=== PATIENT | male | born 1955 | race Caucasian/White ===

== ENCOUNTER 2017-02-01 16:25 | Inpatient (IN) | payer OTHER ==
[~2017-02-01] VITALS: Ht 170.2 cm; Wt 92.6 kg
[2017-02-01 18:54] LABS: URINE BLOOD (Dip) POC Negative (NEGATIVE)
[2017-02-01] MEDS ORDERED: morphine 2 MG INJ IV STA (18:59)
[2017-02-01] MEDS ORDERED: SOD CHLORIDE 0.9% 1,000 ML IV STA (18:59)
[2017-02-01] MEDS ORDERED: ONDANSETRON 4 MG INJ IV STA ×2 (18:59→22:15)
--- NOTE | 2017-02-01 19:11 | ERD ---
ER Documentation Chief Complaint Chief Complaint LOWER ABDOMINAL PAIN X 1 WEEK; DENIES N/V HPI This is a very pleasant 61-year-old [place]-speaking male with a known history of hypertension. He presents to the emergency department stating he has been experiencing intermittent abdominal pain for the past 7 days. The patient indicates that the pain is below his umbilicus and does radiate to the left lower quadrant. The pain is exacerbated by movement. He denies any fever shaking or chills. He denies any diarrhea or constipation. He denies any gross hematuria and also no frequency urgency or dysuria. He denies any nocturia or weight loss. He denies any shortness of breath at rest or exertion. He has no chest pain or pressure that radiates the neck arm back or jaw. He states never had any similar symptoms in the past. He has no changes in his bladder or bowel frequency. He has taken Advil which improved his pain. He states the pain when he is not taking the Advil is 8 out of 10 in intensity. ROS All systems reviewed and are negative except as per history of present illness. Allergies Allergies: Coded Allergies: No Known Allergy (Unverified , 02/01/17) Physical Exam Vitals Vital Signs Date Time Temp Pulse Resp B/P Pulse Ox O2 Delivery O2 Flow Rate FiO2 02/01/17 16:28 98.4 71 19 156/93 94 Physical Exam Constitutional:Well-developed. Well-nourished. HEENT:Normocephalic. Atraumatic.Pupils were equal round reactive to light. Moist mucous membranes.No tonsillar exudates. Neck: No nuchal rigidity. No lymphadenopathy. No posterior cervical spine tenderness or step-offs. Respiratory: Not using accessory muscles of respiration.Lungs were clear to auscultation bilaterally. No rhonchi. No rales. No wheezing. Cardiovascular: Regular rate regular rhythm.No murmurs. No rubs were appreciated.S1, S2 normal. Distal pulses are palpable 2+ bilaterally. GI: Abdomen was soft. Tenderness in the left lower quadrant and mild tenderness below the umbilicus with no palpable bladder. Non Distended. No pulsatile abdominal masses or bruits. No rebound. No guarding. Bowel sounds were present and normal. Muscle skeletal: Full range of motion of both the upper and lower extremities bilaterally.Normal muscle tone.No assymetrical calf tenderness or swelling. Skin: No petechia, no purpura. No lesions on the palms or the soles of the feet. No maculopapular rash. NEURO: Patient was alert, awake, orientated x3.No facial droop. Gait observed and normal with no ataxia.Speech had regular rate and rhythm. No focal neurological deficits. Result Diagram: 02/01/17190102/01/171901 Results 24 hrs Laboratory Tests Test 02/01/17 18:52 02/01/17 19:02 Bedside Urine pH (LAB) 7.0 Bedside Urine Protein (LAB) Negative Bedside Urine Glucose (UA) Negative Bedside Urine Ketones (LAB) Negative Bedside Urine Blood Negative Bedside Urine Nitrite (LAB) Negative Bedside Urine Leukocyte Esterase (L Negative White Blood Count 11.310^3/ul Red Blood Count 4.9210^6/ul Hemoglobin 14.4g/dl Hematocrit 42.8% Mean Corpuscular Volume 87.0fl Mean Corpuscular Hemoglobin 29.3pg Mean Corpuscular Hemoglobin Concent 33.6g/dl Red Cell Distribution Width 12.7% Platelet Count 62476^3/UL Mean Platelet Volume 11.1fl Neutrophils % 75.2% Lymphocytes % 16.4% Monocytes % 6.3% Eosinophils % 1.3% Basophils % 0.4% Nucleated Red Blood Cells % 0.0/100WBC Neutrophils # 8.510^3/ul Lymphocytes # 1.910^3/ul Monocytes # 0.710^3/ul Eosinophils # 0.210^3/ul Basophils # 0.010^3/ul Nucleated Red Blood Cells # 0.010^3/ul Prothrombin Time 11.8Sec Prothrombin Time Ratio 0.9 INR International Normalized Ratio 0.86 Activated Partial Thromboplast Time 31.3Sec Urine Color STRAW Urine Clarity CLEAR Urine pH 7.0 Urine Specific [place] 1.005 Urine Ketones NEGATIVEmg/dL Urine Nitrite NEGATIVEmg/dL Urine Bilirubin NEGATIVEmg/dL Urine Urobilinogen NEGATIVEmg/dL Urine Leukocyte Esterase NEGATIVELeu/ul Urine Hemoglobin NEGATIVEmg/dL Urine Glucose NEGATIVEmg/dL Urine Total Protein NEGATIVEmg/dl Sodium Level 142mmol/L Potassium Level 4.3mmol/L Chloride Level 101mmol/L Carbon Dioxide Level 31mmol/L Anion Gap 14 Blood Urea Nitrogen 19mg/dl Creatinine 1.09mg/dl Glucose Level 106mg/dl Calcium Level 9.7mg/dl Total Bilirubin 0.7mg/dl Direct Bilirubin 0.00mg/dl Indirect Bilirubin 0.7mg/dl Aspartate Amino Transf (AST/SGOT) 21IU/L Alanine Aminotransferase (ALT/SGPT) 44IU/L Alkaline Phosphatase 81IU/L Troponin I < 0.012ng/ml Total Protein 7.9g/dl Albumin 4.1g/dl Globulin 3.80g/dl Albumin/Globulin Ratio 1.07 Amylase Level 100U/L Lipase 132U/L Prostate Specific Antigen 0.3ng/ml Current Medications Medications (Trade) Dose Ordered Sig/Zander Route PRN Reason Start Time Stop Time Status Last Admin Dose Admin Sodium Chloride (NS) 1,000 ml @ 1,000 mls/hr Q1H STAT IV 02/01/17 18:59 02/01/17 19:58 DC 02/01/17 19:08 Morphine Sulfate (morphine) 2 mg ONCE STAT IV 02/01/17 18:59 02/01/17 19:02 DC 02/01/17 19:08 Ondansetron HCl 4 mg 4 mg ONCE STAT IV 02/01/17 18:59 02/01/17 19:02 DC 02/01/17 19:08 Sodium Chloride (NS) 100 ml @ ud STK-MED ONCE .ROUTE 02/01/17 20:39 02/01/17 20:40 DC 02/01/17 20:44 Iodixanol 100 ml 100 ml STK-MED ONCE .ROUTE 02/01/17 20:39 02/01/17 20:40 DC 02/01/17 20:44 Metronidazole 100 ml @ 100 mls/hr ONCE STAT IVPB 02/01/17 22:09 02/01/17 23:08 Ciprofloxacin/ Dextrose (Cipro Ivpb) 200 ml @ 200 mls/hr ONCE STAT IVPB 02/01/17 22:09 02/01/17 23:08 Procedures/MDM This patient presented to the emergency department with abdominal pain and was seen and evaluated by myself. My differential diagnosis included but was not limited to abdominal aortic aneurysm, appendicitis, pancreatitis, perforated peptic ulcer, perforated viscus, Boerhaaves syndrome or visceral pain such as diverticulitis, DKA, esophagitis, hepatitis or bowel obstruction. The patient was placed on a manager stone, continuous pulse oximetry, and IV access was established by nursing staff. Patient received intravenous morphine and Zofran with minimal improvement of his pain but not complete resolution. Due to the patient's significant pain in the left lower quadrant I did feel is necessary to obtain a CT scan of the abdomen which indicated the following as it was reviewed by the radiologist and myself: 1. Colonic diverticulosis, with thickening and fat stranding associated with the sigmoid colon, consistent with diverticulitis. There is a small fluid collection adjacent to or within the sigmoid colon wall, which appears suspicious for intramural or intraperitoneal abscess formation, 2.2 x 1.8 cm. This does not appear readily accessible for CT guided drainage. 2. Left renal 3 mm too small to characterize hypodensity. This time blood cultures were obtained and the patient was started on IV ciprofloxacin and Flagyl. He was given further analgesic medication. He will be admitted in serious condition to the hospitalist for further treatment. Departure Diagnosis: Primary Impression: Diverticulitis Condition: Serious ALEX FONTANEZ Feb 01, 2017 19:11
[2017-02-01 19:52] LABS: BASOPHILS % 0.4 % (0.0-2.0); EOSINOPHILS # 0.2 10^3/ul (0.0-0.5); EOSINOPHILS % 1.3 % (0.0-7.0); HEMATOCRIT 42.8 % (42.0-52.0); HEMOGLOBIN 14.4 g/dl (14.0-18.0); LYMPHOCYTES # 1.9 10^3/ul (0.8-2.9); LYMPHOCYTES % 16.4 % (15.0-51.0); MEAN CORPUSCULAR HEMOGLOBIN 29.3 pg (29.0-33.0); MEAN CORPUSCULAR HGB CONC 33.6 g/dl (32.0-37.0); MEAN PLATELET VOLUME 11.1 fl (7.4-10.4); MONOCYTE # 0.7 10^3/ul (0.3-0.9); MONOCYTES % 6.3 % (0.0-11.0); NEUTROPHIL # 8.5 10^3/ul (1.6-7.5); NEUTROPHILS % 75.2 % (39.0-77.0); PLATELET COUNT 243 10^3/UL (140-415); RED BLOOD COUNT 4.92 10^6/ul (4.70-6.10); RED CELL DISTRIBUTION WIDTH 12.7 % (11.5-14.5); WHITE BLOOD COUNT 11.3 10^3/ul (4.8-10.8)
[2017-02-01 19:54] LABS: ADD UMIC NO; UR ASCORBIC ACID NEGATIVE (NEGATIVE); UR BILIRUBIN (Dip) NEGATIVE (NEGATIVE); UR BLOOD (Dip) NEGATIVE (NEGATIVE); UR CLARITY CLEAR (CLEAR); UR COLOR STRAW (YELLOW); UR GLUCOSE (Dip) NEGATIVE (NEGATIVE); UR KETONES (Dip) NEGATIVE (NEGATIVE); UR LEUKOCYTE ESTERASE (Dip) NEGATIVE Leu/ul (NEGATIVE); UR NITRITE (Dip) NEGATIVE (NEGATIVE); UR SPECIFIC GRAVITY (Dip) 1.005 (1.003-1.030); UR TOTAL PROTEIN (Dip) NEGATIVE (NEGATIVE); UR UROBILINOGEN (Dip) NEGATIVE (NEGATIVE)
[2017-02-01 20:14] LABS: INR 0.86; PROTIME 11.8 Sec (11.9-14.9); PT RATIO 0.9
[2017-02-01 20:15] LABS: PARTIAL THROMBOPLASTIN TIME 31.3 Sec (25.0-35.0)
[2017-02-01 20:16] LABS: ALANINE AMINOTRANSFERASE 44 IU/L (13-69); ALBUMIN 4.1 g/dl (3.3-4.9); ALBUMIN/GLOBULIN RATIO 1.07; ALKALINE PHOSPHATASE 81 IU/L (42-121); AMYLASE 100 U/L (11-123); ANION GAP 14 (8-16); ASPARTATE AMINO TRANSFERASE 21 IU/L (15-46); BILIRUBIN,INDIRECT 0.7 mg/dl (0-1.1); BILIRUBIN,TOTAL 0.7 mg/dl (0.2-1.3); BLOOD UREA NITROGEN 19 mg/dl (7-20); CALCIUM 9.7 mg/dl (8.4-10.2); CARBON DIOXIDE 31 mmol/L (21-31); CHLORIDE 101 mmol/L (97-110); CREATININE 1.09 mg/dl (0.61-1.24); GLUCOSE 106 mg/dl (70-220); POTASSIUM 4.3 mmol/L (3.5-5.1); SODIUM 142 mmol/L (135-144); TOTAL PROTEIN 7.9 g/dl (6.1-8.1)
[2017-02-01 20:37] LABS: TROPONIN-I < 0.012 ng/ml (0.00-0.12)
[2017-02-01] MEDS ORDERED: IODIXANOL LOCM 100 ML BTL ONE (20:39)
[2017-02-01] MEDS ORDERED: SOD CHLORIDE 0.9% 100 ML ONE (20:39)
[2017-02-01 20:46] LABS: PROSTATE SPECIFIC ANTIGEN 0.3 ng/ml (0.0-4.0)
--- NOTE | 2017-02-01 21:19 | RADRPT ---
PROCEDURE: CT abdomen and pelvis with contrast CLINICAL INDICATION: Abdominal Pain TECHNIQUE: Continues axial CT images were obtained from the lower chest through the pubic symphysi s. Coronal and sagittal constructions were performed. Examination was performed after administrati on of 100 mL of Visipaque 320 intravenous contrast. The calculated radiation dose measures 980 mGy centimeters. The CTDI measures 17 mGy. One or more of the following dose reduction techniques were used: Automated exposure control. Adjustment of the mA and/or kV according to patient size. Use of iterative reconstruction technique. DICOM images are available. COMPARISON: None available FINDINGS: Limited images through the lung bases demonstrate a calcified granuloma in the left lower lobe. Abdomen: The liver appears normal in size and configuration. The gallbladder appears within normal limits. T here is no intrahepatic or extrahepatic biliary dilatation. The spleen is normal in size. The pancr eas and adrenal glands appear unremarkable. The kidneys are normal in configuration. There is a 3 mm too small to characterize hypodensity in th e left renal mid pole, image 85 of series 3. No renal calculus or hydronephrosis is seen. There is colonic diverticulosis, most extensive in the sigmoid colon. There is thickening of the sig moid colon, and 2.2 x 1.8 cm fluid collection, within or adjacent to the posterior wall of the sigmo id colon. There is adjacent fat stranding.. The appendix appears within normal limits. There is no retroperitoneal adenopathy or ascites. Pelvis: The urinary bladder appears unremarkable. The prostate is not enlarged. There is no abnormal pelvi c mass or adenopathy. There is no pelvic free fluid. Osseous structures of the abdomen and pelvis appear within normal limits. IMPRESSION: 1. Colonic diverticulosis, with thickening and fat stranding associated with the sigmoid colon, con sistent with diverticulitis. There is a small fluid collection adjacent to or within the sigmoid col on wall, which appears suspicious for intramural or intraperitoneal abscess formation, 2.2 x 1.8 cm. This does not appear readily accessible for CT guided drainage. 2. Left renal 3 mm too small to characterize hypodensity. RPTAT: HBST .Jonnathan Blue MD, MD Date Time Electronically viewed and signed by .Jonnathan Blue MD, on 02/01/2017 21:19 .T/
[2017-02-01] MEDS ORDERED: CIPROFLOXACIN 400MG/D5W 200 ML IVPB STA (22:09)
[2017-02-01] MEDS ORDERED: metroNIDAZOLE 500 MG/NS (PMX) 100 ML IVPB STA (22:09)
[2017-02-01] MEDS ORDERED: HYDROmorphONE 1 MG/ML SYG IV STA (22:15)
[2017-02-01] MEDS ORDERED: ACETAMINOPHEN 325 MG TAB PO PRN (23:30)
[2017-02-01] MEDS ORDERED: ONDANSETRON 4 MG INJ IV PRN ×2 (23:30)
[2017-02-02 00:03] VITALS: PULSE 63; TEMP 98.2
[2017-02-02 00:31] VITALS: BP 155/88; RESP 16
[2017-02-02 00:40] VITALS: Ht 170.2 cm; Wt 92.6 kg
[2017-02-02] MEDS: PIPER-TAZO 3.375 GM IV (PMX) 50 ML IV SCH ×4 (01:04→20:36)
[2017-02-02] MEDS: morphine 4 MG/ML VIAL IV PRN ×2 (01:05→14:59)
[2017-02-02] MEDS: D5W-0.45 NACL + KCL 10 MEQ 1,000 ML IV SCH ×3 (01:56→15:46)
[2017-02-02 05:29] LABS: BASOPHILS % 0.3 % (0.0-2.0); EOSINOPHILS # 0.2 10^3/ul (0.0-0.5); EOSINOPHILS % 1.6 % (0.0-7.0); HEMATOCRIT 37.9 % (42.0-52.0); HEMOGLOBIN 12.7 g/dl (14.0-18.0); LYMPHOCYTES # 1.7 10^3/ul (0.8-2.9); LYMPHOCYTES % 18.2 % (15.0-51.0); MEAN CORPUSCULAR HEMOGLOBIN 29.4 pg (29.0-33.0); MEAN CORPUSCULAR HGB CONC 33.5 g/dl (32.0-37.0); MEAN CORPUSCULAR VOLUME 87.7 fl (82.0-101.0); MEAN PLATELET VOLUME 10.8 fl (7.4-10.4); MONOCYTE # 0.7 10^3/ul (0.3-0.9); NEUTROPHIL # 6.7 10^3/ul (1.6-7.5); NEUTROPHILS % 72.5 % (39.0-77.0); PLATELET COUNT 203 10^3/UL (140-415); RED BLOOD COUNT 4.32 10^6/ul (4.70-6.10); RED CELL DISTRIBUTION WIDTH 12.7 % (11.5-14.5); WHITE BLOOD COUNT 9.2 10^3/ul (4.8-10.8)
[2017-02-02] MEDS: PANTOPRAZOLE (EC) 40 MG TAB PO SCH (05:45)
[2017-02-02 06:02] LABS: CREATININE 1.1 mg/dl (0.61-1.24); POTASSIUM 4.5 mmol/L (3.5-5.1)
[2017-02-02 07:56] VITALS: BP 112/76; RESP 18
[2017-02-02] MEDS ORDERED: MAGNESIUM HYDROXIDE 30ML CUP PO PRN (10:30)
[2017-02-02] MEDS ORDERED: NACL 0.9% 3 ML SYG IV SCH (10:30)
[2017-02-02] MEDS ORDERED: DOCUSATE SODIUM 100 MG CAP PO PRN (10:30)
[2017-02-02] MEDS ORDERED: BISACODYL 10 MG SUPP PR PRN (10:30)
--- NOTE | 2017-02-02 10:33 | HP ---
Date/Time of Note Date/Time of Note DATE: 02/02/17 TIME: 10:11 Assessment/Plan VTE Prophylaxis VTE Prophylaxis Intervention: SCD's Assessment/Plan Assessment/Plan 61-year-old male with: 1. Acute sigmoid diverticulitis with possible adjacent small abscess on CAT scan abdomen pelvis, patient currently n.p.o., continue Zosyn for IV antibiotics , he is hemodynamically stable and seems to be improving. Surgical consult with Dr. Arriaga today. If medical management is recommended, will start on clear liquids if of okay with surgery Pain control, Zofran for antiemetic as needed. 2. Hypertension: Hydralazine as needed while n.p.o. Prophylaxis: Protonix for GI prophylaxis, SCDs to lower extremity for DVT prophylaxis Disposition: Surgical evaluation today, further care per surgical recommendations. Continue IV antibiotics and IV fluids. HPI/ROS Admit Date/Time Admit Date/Time Feb 01, 2017 at 23:17 Hx of Present Illness Chief complaint: Abdominal pain History of presenting illness: 61-year-old male with history of hyperlipidemia and hypertension who presented to the emergency department with complaint of lower abdominal pain predominantly left lower quadrant for the past 1 week. Patient reports that the pain kept increasing in intensity over the past week. It seems to be worse after eating. He still has been able to take p.o., no nausea, vomiting, hematemesis, diarrhea. He reports occasional hematochezia over the past month, he thought he was secondary to hemorrhoids as he has had it in the past. He denies any large amount of bright red blood per rectum. Patient denies any previous history of diverticulitis as far as he knows. In the emergency department he was found to have mild leukocytosis with a white blood cell count of 11.3, CAT scan of the abdomen and pelvis does show sigmoid diverticulitis with a small fluid collection 2.2 x 1.8 cm adjacent to or within the sigmoid colon wall that appears suspicious for intramural versus intraperitoneal abscess formation. Patient is currently on IV antibiotics, WBC has trended down to normal, his pain is down to 4/10. We will have a surgical evaluation however most likely the patient will be treated medically. Patient denies any other comorbidities, no diabetes mellitus, no coronary artery disease. He is very active at baseline. ROS Constitutional: no complaints Eyes: no complaints ENT: no complaints Respiratory: no complaints Cardiovascular: no complaints Gastrointestinal: other (Occasional constipation), pain (Lower abdomen, left lower quadrant predominantly) Genitourinary: no complaints Musculoskeletal: no complaints Skin: no complaints Neurologic: no complaints Endocrine: no complaints Lymphatic: no complaints PMH/Family/Social Past Medical History Hypertension Hyperlipidemia Chronic low back pain, treated with Motrin as needed Past Surgical History Past Surgical Hx: no surgical history Family History Significant Family History: no pertinent family hx Social History Alcohol Use: none Smoking Status: Never smoker Drug Use: none Exam/Review of Systems Vital Signs Vitals Vital Signs Date Time Temp Pulse Resp B/P Pulse Ox O2 Delivery O2 Flow Rate FiO2 02/02/17 07:56 98.2 58 18 112/76 98 02/02/17 00:03 Room Air Intake and Output 02/01/17 02/01/17 02/02/17 15:00 23:00 07:00 Intake Total 540 ml Output Total 750 ml Balance -210 ml Exam Constitutional: alert, oriented, well developed Respiratory: clear to auscultation, normal air movement Cardiovascular: nl pulses, regular rate and rhythm Gastrointestinal: soft, tender (Lower abdomen predominantly left lower quadrant ) Musculoskeletal: nl extremities to inspection, nl gait and stance Extremities: normal pulses, other (No edema, clubbing or cyanosis) Neurological: BILLING COLLECTIONS SPECIALIST II-XII intact, nl mental status, nl speech, nl strength Labs Result Diagram: 02/02/1744102/02/17442 Medications Medications Current Medications Morphine Sulfate (morphine) 3 mg Q3 PRN IV PAIN LEVEL 6-10 Last administered on 02/02/17 01:05; Admin Dose 3 MG; Start 02/01/17 at 23:30 Ondansetron HCl (Zofran Inj) 4 mg Q4 PRN IV NAUSEA AND/OR VOMITING; Start 02/01 at 23:30 Pantoprazole 40 mg 40 mg DAILY@06 PO Last administered on 02/02/17 05:45; Admin Dose 40 MG; Start 02/02/17 at 06:00 Piperacillin Sod/ Tazobactam Sod 50 ml @ 100 mls/hr Q8 IV Last administered on 02/02/17 05:44; Admin Dose 100 MLS/HR; Start 02/01/17 at 23:30 Potassium Chloride/Dextrose/ Sod Cl (D5-1/2ns + KCl 10 Meq) 1,000 ml @ 125 mls/ hr Q8H IV Last administered on 02/02/17t 01:56; Admin Dose 125 MLS/HR; Start 02/01/17 at 23:30 Procedures Procedures PROCEDURE: CT abdomen and pelvis with contrast CLINICAL INDICATION: Abdominal Pain TECHNIQUE: Continues axial CT images were obtained from the lower chest through the pubic symphysis. Coronal and sagittal constructions were performed. Examination was performed after administration of 100 mL of Visipaque 320 intravenous contrast. The calculated radiation dose measures 980 mGy centimeters. The CTDI measures 17 mGy. One or more of the following dose reduction techniques were used: Automated exposure control. Adjustment of the mA and/or kV according to patient size. Use of iterative reconstruction technique. DICOM images are available. COMPARISON: None available FINDINGS: Limited images through the lung bases demonstrate a calcified granuloma in the left lower lobe. Abdomen: The liver appears normal in size and configuration. The gallbladder appears within normal limits. There is no intrahepatic or extrahepatic biliary dilatation. The spleen is normal in size. The pancreas and adrenal glands appear unremarkable. The kidneys are normal in configuration. There is a 3 mm too small to characterize hypodensity in the left renal mid pole, image 85 of series 3. No renal calculus or hydronephrosis is seen. There is colonic diverticulosis, most extensive in the sigmoid colon. There is thickening of the sigmoid colon, and 2.2 x 1.8 cm fluid collection, within or adjacent to the posterior wall of the sigmoid colon. There is adjacent fat stranding.. The appendix appears within normal limits. There is no retroperitoneal adenopathy or ascites. Pelvis: The urinary bladder appears unremarkable. The prostate is not enlarged. There is no abnormal pelvic mass or adenopathy. There is no pelvic free fluid. Osseous structures of the abdomen and pelvis appear within normal limits. IMPRESSION: 1. Colonic diverticulosis, with thickening and fat stranding associated with the sigmoid colon, consistent with diverticulitis. There is a small fluid collection adjacent to or within the sigmoid colon wall, which appears suspicious for intramural or intraperitoneal abscess formation, 2.2 x 1.8 cm. This does not appear readily accessible for CT guided drainage. 2. Left renal 3 mm too small to characterize hypodensity. RPTAT: HBST .Jonnathan Blue MD, Date Time Electronically viewed and signed by .Jonnathan Blue MD, on 02/01/2017 21:19 USMAN GAMBLE Feb 02, 2017 10:24
[2017-02-02 15:35] VITALS: BP 129/71; RESP 18
--- NOTE | 2017-02-02 17:46 | CONS ---
Date/Time of Note Date/Time of Note DATE: 02/02/17 TIME: 17:43 Assessment/Plan Assessment/Plan Additional Assessment/Plan Acute sigmoid diverticulitis with microperforation Leukocytosis resolved Plan continue medical management. Surgery reserved for medical treatment failure. Further recommendations will be forthcoming based on the patient's further workup and clinical course. I will follow with you. Consultation Date/Type/Reason Admit Date/Time Feb 01, 2017 at 23:17 Date of Consultation: Feb 02, 2017 Reason for Consultation Acute sigmoid diverticulitis with microperforation Hx of Present Illness The patient is a hypertensive 61-year-old male who is otherwise healthy. He presents with a one-week history of suprapubic and back pain. CT scan done yesterday showed sigmoid diverticulitis with microperforation and 2.2 cm abscess either intramural or intraperitoneal. The patient's leukocytosis has resolved, but the patient's symptoms have minimally improved. He has had no fevers or chills. Constitutional: no complaints Eyes: no complaints ENT: no complaints Respiratory: no complaints Cardiovascular: no complaints Gastrointestinal: other (As in the HPI) Genitourinary: other (Suprapubic discomfort) Musculoskeletal: no complaints Skin: no complaints Neurologic: no complaints Endocrine: no complaints Lymphatic: no complaints Psychological: no complaints Immunologic: no complaints Past Medical History Medical History: hypertension Past Surgical History Past Surgical Hx: no surgical history Family History Significant Family History: no pertinent family hx Social History Alcohol Use: none Smoking Status: Never smoker Drug Use: none Exam/Review of Systems Vital Signs Vitals Vital Signs Date Time Temp Pulse Resp B/P Pulse Ox O2 Delivery O2 Flow Rate FiO2 02/02/17 15:35 97.8 82 18 129/71 94 02/02/17 00:03 Room Air Intake and Output 02/01/17 02/01/17 02/02/17 15:00 23:00 07:00 Intake Total 540 ml Output Total 750 ml Balance -210 ml Exam Constitutional: alert Psych: no complaints Head: normocephalic Eyes: nl conjunctiva ENMT: nl external ears & nose Neck: supple Respiratory: clear to auscultation Cardiovascular: regular rate and rhythm Gastrointestinal: soft, tender (Mild left lower quadrant tenderness to deep palpation without guarding or rebound) Genitourinary - Male: nl penis Musculoskeletal: nl extremities to inspection Extremities: normal pulses Neurological: PLANETARIUM TECHNICIAN II-XII intact Skin: nl turgor Lymph: nl lymph nodes Results Result Diagram: 02/02/17 0442 02/02/17 0443 Results 24 hrs Laboratory Tests Test 02/01/17 18:52 02/01/17 19:02 02/02/17 04:42 02/02/17 04:43 Bedside Urine pH (LAB) 7.0 Bedside Urine Protein (LAB) Negative Bedside Urine Glucose (UA) Negative Bedside Urine Ketones (LAB) Negative Bedside Urine Blood Negative Bedside Urine Nitrite (LAB) Negative Bedside Urine Leukocyte Esterase (L Negative White Blood Count 11.3 H 9.2 Red Blood Count 4.92 4.32 L Hemoglobin 14.4 12.7 L Hematocrit 42.8 37.9 L Mean Corpuscular Volume 87.0 87.7 Mean Corpuscular Hemoglobin 29.3 29.4 Mean Corpuscular Hemoglobin Concent 33.6 33.5 Red Cell Distribution Width 12.7 12.7 Platelet Count 243 203 Mean Platelet Volume 11.1 H 10.8 H Neutrophils % 75.2 72.5 Lymphocytes % 16.4 18.2 Monocytes % 6.3 7.0 Eosinophils % 1.3 1.6 Basophils % 0.4 0.3 Nucleated Red Blood Cells % 0.0 0.0 Neutrophils # 8.5 H 6.7 Lymphocytes # 1.9 1.7 Monocytes # 0.7 0.7 Eosinophils # 0.2 0.2 Basophils # 0.0 0.0 Nucleated Red Blood Cells # 0.0 0.0 Prothrombin Time 11.8 L Prothrombin Time Ratio 0.9 INR International Normalized Ratio 0.86 Activated Partial Thromboplast Time 31.3 Urine Color STRAW Urine Clarity CLEAR Urine pH 7.0 Urine Specific [place] 1.005 Urine Ketones NEGATIVE Urine Nitrite NEGATIVE Urine Bilirubin NEGATIVE Urine Urobilinogen NEGATIVE Urine Leukocyte Esterase NEGATIVE Urine Hemoglobin NEGATIVE Urine Glucose NEGATIVE Urine Total Protein NEGATIVE Sodium Level 142 141 Potassium Level 4.3 4.5 Chloride Level 101 103 Carbon Dioxide Level 31 33 H Anion Gap 14 10 Blood Urea Nitrogen 19 15 Creatinine 1.09 1.10 Glucose Level 106 142 Calcium Level 9.7 9.0 Total Bilirubin 0.7 Direct Bilirubin 0.00 Indirect Bilirubin 0.7 Aspartate Amino Transf (AST/SGOT) 21 Alanine Aminotransferase (ALT/SGPT) 44 Alkaline Phosphatase 81 Troponin I < 0.012 Total Protein 7.9 Albumin 4.1 Globulin 3.80 H Albumin/Globulin Ratio 1.07 Amylase Level 100 Lipase 132 Prostate Specific Antigen 0.3 Triglycerides Level 104 Cholesterol Level 157 LDL Cholesterol, Calculated 105 HDL Cholesterol 31 Cholesterol/HDL Ratio 5.0 Medications Medications Current Medications Morphine Sulfate (morphine) 3 mg Q3 PRN IV PAIN LEVEL 6-10 Last administered on 02/02/17 14:59; Admin Dose 3 MG; Start 02/01/17 at 23:30 Ondansetron HCl (Zofran Inj) 4 mg Q4 PRN IV NAUSEA AND/OR VOMITING; Start 02/01 at 23:30 Pantoprazole 40 mg 40 mg DAILY@06 PO Last administered on 02/02/17 05:45; Admin Dose 40 MG; Start 02/02/17 at 06:00 Piperacillin Sod/ Tazobactam Sod 50 ml @ 100 mls/hr Q8 IV Last administered on 02/02/17 13:23; Admin Dose 100 MLS/HR; Start 02/01/17 at 23:30 Potassium Chloride/Dextrose/ Sod Cl (D5-1/2ns + KCl 10 Meq) 1,000 ml @ 125 mls/ hr Q8H IV Last administered on 02/02/17 15:46; Admin Dose 125 MLS/HR; Start 02/01/17 at 23:30 Docusate Sodium (Colace) 100 mg Q12H PRN PO CONSTIPATION; Start 02/02/17 at 10: 30 Magnesium Hydroxide (Milk Of Mag) 30 ml DAILY PRN PO CONSTIPATION; Start at 10:30 Bisacodyl (Dulcolax Supp) 10 mg DAILY PRN [place] CONSTIPATION; Start 02/02/17 at 10 :30 DAYSI MILLER MD Feb 02, 2017 17:46
[2017-02-02 19:35] VITALS: BP 121/77; RESP 18
[2017-02-03] MEDS: D5W-0.45 NACL + KCL 10 MEQ 1,000 ML IV SCH ×4 (01:15→19:08)
[2017-02-03 01:22] VITALS: BP 132/86; RESP 18
[2017-02-03 05:14] LABS: BASOPHILS % 0.3 % (0.0-2.0); EOSINOPHILS # 0.1 10^3/ul (0.0-0.5); EOSINOPHILS % 2.1 % (0.0-7.0); HEMATOCRIT 39.1 % (42.0-52.0); HEMOGLOBIN 13.1 g/dl (14.0-18.0); LYMPHOCYTES # 1.7 10^3/ul (0.8-2.9); LYMPHOCYTES % 25.1 % (15.0-51.0); MEAN CORPUSCULAR HEMOGLOBIN 29.6 pg (29.0-33.0); MEAN CORPUSCULAR HGB CONC 33.5 g/dl (32.0-37.0); MEAN CORPUSCULAR VOLUME 88.3 fl (82.0-101.0); MEAN PLATELET VOLUME 10.8 fl (7.4-10.4); MONOCYTE # 0.5 10^3/ul (0.3-0.9); MONOCYTES % 7.8 % (0.0-11.0); NEUTROPHIL # 4.4 10^3/ul (1.6-7.5); NEUTROPHILS % 64.4 % (39.0-77.0); PLATELET COUNT 210 10^3/UL (140-415); RED BLOOD COUNT 4.43 10^6/ul (4.70-6.10); RED CELL DISTRIBUTION WIDTH 12.7 % (11.5-14.5); WHITE BLOOD COUNT 6.8 10^3/ul (4.8-10.8)
[2017-02-03] MEDS: PANTOPRAZOLE (EC) 40 MG TAB PO SCH (05:35)
[2017-02-03] MEDS: PIPER-TAZO 3.375 GM IV (PMX) 50 ML IV SCH ×3 (05:35→22:40)
[2017-02-03 05:57] LABS: ALBUMIN 3.4 g/dl (3.3-4.9); CALCIUM 8.9 mg/dl (8.4-10.2); CREATININE 1.31 mg/dl (0.61-1.24); MAGNESIUM 2.2 mg/dl (1.7-2.5); PHOSPHORUS 4.3 mg/dl (2.5-4.9); POTASSIUM 4.2 mmol/L (3.5-5.1); TOTAL PROTEIN 6.8 g/dl (6.1-8.1)
[2017-02-03 08:30] VITALS: BP 139/81; RESP 18
--- NOTE | 2017-02-03 13:02 | PN ---
Date/Time of Note Date/Time of Note DATE: 02/03/17 TIME: 13:01 Assessment/Plan Lines/Catheters IV C[facility]ter Type (from [facility]): Peripheral IV Assessment/Plan Chief Complaint/Hosp Course The patient is a hypertensive 61-year-old male who is otherwise healthy. He presents with a one-week history of suprapubic and back pain. CT scan done yesterday showed sigmoid diverticulitis with microperforation and 2.2 cm abscess either intramural or intraperitoneal. The patient's leukocytosis has resolved, but the patient's symptoms have minimally improved. He has had no fevers or chills. Problems: Assessment/Plan Abdominal examination is benign Leukocytosis resolved Plan: Start clear liquids. Continue medical management Subjective 24 Hr Interval Summary Markedly symptomatically improved Exam/Review of Systems Vital Signs Vitals Vital Signs Date Time Temp Pulse Resp B/P Pulse Ox O2 Delivery O2 Flow Rate FiO2 02/03/17 08:30 98.1 63 18 139/81 96 02/02/17 00:03 Room Air Intake and Output 02/02/17 02/02/17 02/03/17 15:00 23:00 07:00 Intake Total 50 ml 1190 ml 1450 ml Output Total 1100 ml 1600 ml Balance 50 ml 90 ml -150 ml Results Result Diagram: 02/03/17 0423 02/03/17 0423 DAYSI MILLER MD Feb 03, 2017 13:02
[2017-02-03 15:00] VITALS: BP 133/88; RESP 18
[2017-02-03 20:25] VITALS: BP 141/84; RESP 18
[2017-02-04 02:10] VITALS: BP 128/72; RESP 18
[2017-02-04] MEDS: D5W-0.45 NACL + KCL 10 MEQ 1,000 ML IV SCH ×2 (02:58→14:06)
[2017-02-04] MEDS: PIPER-TAZO 3.375 GM IV (PMX) 50 ML IV SCH ×4 (06:29→23:20)
[2017-02-04] MEDS: PANTOPRAZOLE (EC) 40 MG TAB PO SCH (06:29)
[2017-02-04 08:12] VITALS: BP 146/86; RESP 19
[2017-02-04 11:17] LABS: BASOPHILS % 0.4 % (0.0-2.0); EOSINOPHILS # 0.1 10^3/ul (0.0-0.5); EOSINOPHILS % 2.8 % (0.0-7.0); HEMATOCRIT 38.9 % (42.0-52.0); HEMOGLOBIN 13.2 g/dl (14.0-18.0); LYMPHOCYTES # 1.2 10^3/ul (0.8-2.9); LYMPHOCYTES % 24.5 % (15.0-51.0); MEAN CORPUSCULAR HEMOGLOBIN 29.7 pg (29.0-33.0); MEAN CORPUSCULAR HGB CONC 33.9 g/dl (32.0-37.0); MEAN CORPUSCULAR VOLUME 87.6 fl (82.0-101.0); MEAN PLATELET VOLUME 10.5 fl (7.4-10.4); MONOCYTE # 0.4 10^3/ul (0.3-0.9); MONOCYTES % 8.9 % (0.0-11.0); NEUTROPHIL # 3.1 10^3/ul (1.6-7.5); PLATELET COUNT 207 10^3/UL (140-415); RED BLOOD COUNT 4.44 10^6/ul (4.70-6.10); RED CELL DISTRIBUTION WIDTH 12.6 % (11.5-14.5); WHITE BLOOD COUNT 4.9 10^3/ul (4.8-10.8)
[2017-02-04 11:37] LABS: CALCIUM 9.1 mg/dl (8.4-10.2); CREATININE 1.13 mg/dl (0.61-1.24); MAGNESIUM 2.1 mg/dl (1.7-2.5); POTASSIUM 4.3 mmol/L (3.5-5.1)
--- NOTE | 2017-02-04 12:15 | PN ---
Date/Time of Note Date/Time of Note DATE: 02/03/17 TIME: 15:05 Late Enrty Assessment/Plan VTE Prophylaxis VTE Prophylaxis Intervention: SCD's Lines/Catheters IV Catheter Type (from Nrsg): Peripheral IV Assessment/Plan Assessment/Plan 61-year-old male with: 1. Acute sigmoid diverticulitis with possible adjacent small abscess on CAT scan abdomen pelvis, Started Clears and well tolerated Continue Zosyn for IV antibiotics, he is hemodynamically stable and seems to be improving. Appreciate Gen Surgery recommendations and decreasing IVF if tolerating clears Pain control, Zofran for antiemetic as needed. 2. Hypertension: Hydralazine as needed while n.p.o. Prophylaxis: Protonix for GI prophylaxis, SCDs to lower extremity for DVT prophylaxis Disposition: Advance diet in AM if OK with Gen surg and patient remains stable. Subjective 24 Hr Interval Summary Free Text/Dictation Late Entry , Progress Note for 02/03/17 Patient doing well today No pain, nausea, started on clears Appreciate General Surgery recommendations Exam/Review of Systems Vital Signs Vitals Vital Signs Date Time Temp Pulse Resp B/P Pulse Ox O2 Delivery O2 Flow Rate FiO2 02/04/17 08:12 98.0 52 19 146/86 98 02/02/17 00:03 Room Air Intake and Output 02/03/17 02/03/17 02/04/17 15:00 23:00 07:00 Intake Total 1450 ml 1275 ml 1825 ml Output Total 1300 ml 1500 ml Balance 1450 ml -25 ml 325 ml Exam Constitutional: alert, oriented, well developed Respiratory: clear to auscultation, normal air movement Cardiovascular: nl pulses, regular rate and rhythm Gastrointestinal: non-tender, soft Musculoskeletal: nl extremities to inspection, nl gait and stance Extremities: normal pulses, other (no edema, clubbing or cyanosis ) Neurological: COAGULATING BATH OPERATOR II-XII intact, nl mental status, nl speech, nl strength Results Result Diagram: 02/04/17 1051 02/04/17 1051 Results 24 hrs Laboratory Tests Test 02/04/17 10:51 White Blood Count 4.9 # Red Blood Count 4.44 L Hemoglobin 13.2 L Hematocrit 38.9 L Mean Corpuscular Volume 87.6 Mean Corpuscular Hemoglobin 29.7 Mean Corpuscular Hemoglobin Concent 33.9 Red Cell Distribution Width 12.6 Platelet Count 207 Mean Platelet Volume 10.5 H Neutrophils % 63.0 Lymphocytes % 24.5 Monocytes % 8.9 Eosinophils % 2.8 Basophils % 0.4 Nucleated Red Blood Cells % 0.0 Neutrophils # 3.1 Lymphocytes # 1.2 Monocytes # 0.4 Eosinophils # 0.1 Basophils # 0.0 Nucleated Red Blood Cells # 0.0 Sodium Level 142 Potassium Level 4.3 Chloride Level 105 Carbon Dioxide Level 29 Anion Gap 12 Blood Urea Nitrogen 11 Creatinine 1.13 Glucose Level 97 Calcium Level 9.1 Magnesium Level 2.1 Medications Medications Current Medications Morphine Sulfate (morphine) 3 mg Q3 PRN IV PAIN LEVEL 6-10 Last administered on 02/02/17 14:59; Admin Dose 3 MG; Start 02/01/17 at 23:30 Ondansetron HCl (Zofran Inj) 4 mg Q4 PRN IV NAUSEA AND/OR VOMITING; Start 02/01 at 23:30 Pantoprazole 40 mg 40 mg DAILY@06 PO Last administered on 02/04/17 06:29; Admin Dose 40 MG; Start 02/02/17 at 06:00 Piperacillin Sod/ Tazobactam Sod 50 ml @ 100 mls/hr Q8 IV Last administered on 02/04/17 06:29; Admin Dose 100 MLS/HR; Start 02/01/17 at 23:30 Potassium Chloride/Dextrose/ Sod Cl (D5-1/2ns + KCl 10 Meq) 1,000 ml @ 125 mls/ hr Q8H IV Last administered on 02/04/17 02:58; Admin Dose 125 MLS/HR; Start 02/01/17 at 23:30 Docusate Sodium (Colace) 100 mg Q12H PRN PO CONSTIPATION; Start 02/02/17 at 10: 30 Magnesium Hydroxide (Milk Of Mag) 30 ml DAILY PRN PO CONSTIPATION; Start at 10:30 Bisacodyl (Dulcolax Supp) 10 mg DAILY PRN [place] CONSTIPATION; Start 02/02/17 at 10 :30 USMAN GAMBLE Feb 04, 2017 12:15
--- NOTE | 2017-02-04 12:16 | PN ---
Date/Time of Note Date/Time of Note DATE: 02/04/17 TIME: 12:16 Assessment/Plan VTE Prophylaxis VTE Prophylaxis Intervention: ambulation, SCD's Lines/Catheters IV Catheter Type (from Nrsg): Peripheral IV Assessment/Plan Assessment/Plan 61-year-old male with: 1. Acute sigmoid diverticulitis with possible adjacent small abscess on CAT scan abdomen pelvis, On Clears and well tolerated Continue Zosyn for IV antibiotics for now, if okay with general surgery today will advance diet and change antibiotics to oral for planned treatment of 8-14 days, he is hemodynamically stable and seems to be improving. Appreciate Gen Surgery recommendations and decreasing IVF. Pain control, Zofran for antiemetic as needed. 2. Hypertension: Hydralazine as needed while n.p.o. Prophylaxis: Protonix for GI prophylaxis, SCDs to lower extremity for DVT prophylaxis Disposition: Advance diet today if OK with Gen surg and discharge planning within 24 hrs. Subjective 24 Hr Interval Summary Free Text/Dictation Patient doing well, he denies any abdominal pain, he denies any nausea vomiting , has been tolerating clear liquids. Laboratory data within normal and he remains afebrile. If okay with general surgery will advance further and changed the antibiotics to p.o. with discharge planning within the next 24 hours if stable. Exam/Review of Systems Vital Signs Vitals Vital Signs Date Time Temp Pulse Resp B/P Pulse Ox O2 Delivery O2 Flow Rate FiO2 02/04/17 08:12 98.0 52 19 146/86 98 02/02/17 00:03 Room Air Intake and Output 02/03/17 02/03/17 02/04/17 15:00 23:00 07:00 Intake Total 1450 ml 1275 ml 1825 ml Output Total 1300 ml 1500 ml Balance 1450 ml -25 ml 325 ml Exam Constitutional: alert, oriented, well developed Respiratory: clear to auscultation, normal air movement Cardiovascular: nl pulses, regular rate and rhythm Gastrointestinal: non-tender, other (Nondistended), soft Musculoskeletal: nl extremities to inspection, nl gait and stance Extremities: normal pulses, other (No edema, clubbing or cyanosis) Neurological: ENVIRONMENTAL SUSTAINABILITY MANAGER II-XII intact, nl mental status, nl speech, nl strength Results Result Diagram: 02/04/17 1051 02/04/17 1051 Results 24 hrs Laboratory Tests Test 02/04/17 10:51 White Blood Count 4.9 # Red Blood Count 4.44 L Hemoglobin 13.2 L Hematocrit 38.9 L Mean Corpuscular Volume 87.6 Mean Corpuscular Hemoglobin 29.7 Mean Corpuscular Hemoglobin Concent 33.9 Red Cell Distribution Width 12.6 Platelet Count 207 Mean Platelet Volume 10.5 H Neutrophils % 63.0 Lymphocytes % 24.5 Monocytes % 8.9 Eosinophils % 2.8 Basophils % 0.4 Nucleated Red Blood Cells % 0.0 Neutrophils # 3.1 Lymphocytes # 1.2 Monocytes # 0.4 Eosinophils # 0.1 Basophils # 0.0 Nucleated Red Blood Cells # 0.0 Sodium Level 142 Potassium Level 4.3 Chloride Level 105 Carbon Dioxide Level 29 Anion Gap 12 Blood Urea Nitrogen 11 Creatinine 1.13 Glucose Level 97 Calcium Level 9.1 Magnesium Level 2.1 Medications Medications Current Medications Morphine Sulfate (morphine) 3 mg Q3 PRN IV PAIN LEVEL 6-10 Last administered on 02/02/17 14:59; Admin Dose 3 MG; Start 02/01/17 at 23:30 Ondansetron HCl (Zofran Inj) 4 mg Q4 PRN IV NAUSEA AND/OR VOMITING; Start 02/01 at 23:30 Pantoprazole 40 mg 40 mg DAILY@06 PO Last administered on 02/04/17 06:29; Admin Dose 40 MG; Start 02/02/17 at 06:00 Piperacillin Sod/ Tazobactam Sod 50 ml @ 100 mls/hr Q8 IV Last administered on 02/04/17 06:29; Admin Dose 100 MLS/HR; Start 02/01/17 at 23:30 Potassium Chloride/Dextrose/ Sod Cl (D5-1/2ns + KCl 10 Meq) 1,000 ml @ 125 mls/ hr Q8H IV Last administered on 02/04/17 02:58; Admin Dose 125 MLS/HR; Start 02/01/17 at 23:30 Docusate Sodium (Colace) 100 mg Q12H PRN PO CONSTIPATION; Start 02/02/17 at 10: 30 Magnesium Hydroxide (Milk Of Mag) 30 ml DAILY PRN PO CONSTIPATION; Start at 10:30 Bisacodyl (Dulcolax Supp) 10 mg DAILY PRN [place] CONSTIPATION; Start 02/02/17 at 10 :30 USMAN GAMBLE Feb 04, 2017 12:16
[2017-02-04 15:54] VITALS: BP 135/61; RESP 18
--- NOTE | 2017-02-04 16:52 | PN ---
Date/Time of Note Date/Time of Note DATE: 02/04/17 TIME: 16:51 Assessment/Plan Lines/Catheters IV [facility] (from [facility] Peripheral IV Assessment/Plan Chief Complaint/Hosp Course The patient is a hypertensive 61-year-old male who is otherwise healthy. He presents with a one-week history of suprapubic and back pain. CT scan done yesterday showed sigmoid diverticulitis with microperforation and 2.2 cm abscess either intramural or intraperitoneal. The patient's leukocytosis has resolved, but the patient's symptoms have minimally improved. He has had no fevers or chills. Problems: Assessment/Plan Okay to advance diet Should be able to discharge home with p.o. antibiotics tomorrow Subjective 24 Hr Interval Summary Continued improvement Exam/Review of Systems Vital Signs Vitals Vital Signs Date Time Temp Pulse Resp B/P Pulse Ox O2 Delivery O2 Flow Rate FiO2 02/04/17 15:54 98.2 61 18 135/61 98 02/02/17 00:03 Room Air Intake and Output 02/03/17 02/03/17 02/04/17 14:59 22:59 06:59 Intake Total 1450 ml 1275 ml 1825 ml Output Total 1300 ml 1500 ml Balance 1450 ml -25 ml 325 ml Results Result Diagram: 02/04/17 1051 02/04/17 1051 DAYSI MILLER MD Feb 04, 2017 16:52
[2017-02-04 22:37] VITALS: BP 132/64; RESP 16
[2017-02-05 01:52] VITALS: BP 132/64; RESP 20
[2017-02-05 05:50] LABS: BASOPHILS % 0.6 % (0.0-2.0); EOSINOPHILS # 0.2 10^3/ul (0.0-0.5); EOSINOPHILS % 3.2 % (0.0-7.0); HEMATOCRIT 36.8 % (42.0-52.0); HEMOGLOBIN 12.6 g/dl (14.0-18.0); LYMPHOCYTES # 1.6 10^3/ul (0.8-2.9); LYMPHOCYTES % 30.3 % (15.0-51.0); MEAN CORPUSCULAR HEMOGLOBIN 29.8 pg (29.0-33.0); MEAN CORPUSCULAR HGB CONC 34.2 g/dl (32.0-37.0); MEAN PLATELET VOLUME 10.6 fl (7.4-10.4); MONOCYTE # 0.5 10^3/ul (0.3-0.9); NEUTROPHILS % 55.5 % (39.0-77.0); PLATELET COUNT 207 10^3/UL (140-415); RED BLOOD COUNT 4.23 10^6/ul (4.70-6.10); RED CELL DISTRIBUTION WIDTH 12.4 % (11.5-14.5); WHITE BLOOD COUNT 5.3 10^3/ul (4.8-10.8)
[2017-02-05 06:16] LABS: CALCIUM 8.9 mg/dl (8.4-10.2); CREATININE 1.16 mg/dl (0.61-1.24)
[2017-02-05] MEDS: PANTOPRAZOLE (EC) 40 MG TAB PO SCH (06:37)
[2017-02-05] MEDS: PIPER-TAZO 3.375 GM IV (PMX) 50 ML IV SCH (06:37)
[2017-02-05] MEDS: D5W-0.45 NACL + KCL 10 MEQ 1,000 ML IV SCH (06:38)
[2017-02-05 08:17] VITALS: BP 130/77; RESP 18
[2017-02-05] MEDS ORDERED: LEVOFLOXACIN 500 MG TAB PO SCH (10:00)
--- NOTE | 2017-02-05 10:06 | PN ---
Date/Time of Note Date/Time of Note DATE: 02/05/17 TIME: 10:05 Assessment/Plan Lines/Catheters IV Catheter Type (from [facility]): ZOSYN TUBIMG Assessment/Plan Chief Complaint/Hosp Course The patient is a hypertensive 61-year-old male who is otherwise healthy. He presents with a one-week history of suprapubic and back pain. CT scan done yesterday showed sigmoid diverticulitis with microperforation and 2.2 cm abscess either intramural or intraperitoneal. The patient's leukocytosis has resolved, but the patient's symptoms have minimally improved. He has had no fevers or chills. Problems: Assessment/Plan Leukocytosis resolved Abdominal examination is benign Okay to discharge home with p.o. antibiotics and outpatient follow-up Subjective 24 Hr Interval Summary Afebrile throughout No abdominal pain Exam/Review of Systems Vital Signs Vitals Vital Signs Date Time Temp Pulse Resp B/P Pulse Ox O2 Delivery O2 Flow Rate FiO2 02/05/17 08:17 98.3 53 18 130/77 98 02/02/17 00:03 Room Air Intake and Output 02/04/17 02/04/17 02/05/17 15:00 23:00 07:00 Intake Total 725 ml 1675 ml 1275 ml Output Total 1300 ml 440 ml Balance 725 ml 375 ml 835 ml Results Result Diagram: 02/05/17 0502 02/05/17 0501 DAYSI MILLER MD Feb 05, 2017 10:06
[2017-02-05] MEDS: metroNIDAZOLE 500 MG TAB PO SCH ×2 (10:39→14:27)
--- NOTE | 2017-02-05 13:38 | PN ---
Date/Time of Note Date/Time of Note DATE: 02/05/17 TIME: 13:36 Assessment/Plan VTE Prophylaxis VTE Prophylaxis Intervention: SCD's Lines/Catheters IV Catheter Type (from Nrs): ZOSYN TUBIMG Assessment/Plan Assessment/Plan 61-year-old male with: 1. Acute sigmoid diverticulitis with possible adjacent small abscess on CAT scan abdomen pelvis, patient doing well, WBC within normal, tolerating soft diet at this point. Appreciate recommendations from general surgery, patient will be discharged home today on soft diet to be advanced to regular in the next couple of days and oral antibiotics (Levaquin and Flagyl) for 8 more days. 2. Hypertension: Hydralazine as needed while n.p.o. Prophylaxis: Protonix for GI prophylaxis, SCDs to lower extremity for DVT prophylaxis Disposition: Discharge home, follow-up with primary care physician within 1 week , follow-up with general surgery within 2 weeks for outpatient follow-up. Referral to GI for outpatient colonoscopy in the 6-8 weeks once patient recovers from this episode of diverticulitis. Subjective 24 Hr Interval Summary Free Text/Dictation Patient doing well, no fevers, no chills, tolerating p.o. well. WBC within normal. No abdominal pain. Appreciate recommendation from general surgery, patient will be discharged home today on oral antibiotics. Exam/Review of Systems Vital Signs Vitals Vital Signs Date Time Temp Pulse Resp B/P Pulse Ox O2 Delivery O2 Flow Rate FiO2 02/05/17 08:17 98.3 53 18 130/77 98 02/02/17 00:03 Room Air Intake and Output 02/04/17 02/04/17 02/05/17 15:00 23:00 07:00 Intake Total 725 ml 1675 ml 1275 ml Output Total 1300 ml 440 ml Balance 725 ml 375 ml 835 ml Exam Constitutional: alert, oriented, well developed Respiratory: clear to auscultation, normal air movement Cardiovascular: nl pulses, regular rate and rhythm Gastrointestinal: non-tender, soft Musculoskeletal: nl extremities to inspection, nl gait and stance Extremities: normal pulses Neurological: RECREATIONAL VEHICLE REPAIRER II-XII intact, nl mental status, nl speech, nl strength Results Result Diagram: 02/05/17 0502 02/05/17 0501 Results 24 hrs Laboratory Tests Test 02/05/17 05:01 02/05/17 05:02 Sodium Level 144 Potassium Level 4.0 Chloride Level 105 Carbon Dioxide Level 32 H Anion Gap 11 Blood Urea Nitrogen 10 Creatinine 1.16 Glucose Level 101 Calcium Level 8.9 Magnesium Level 2.0 White Blood Count 5.3 Red Blood Count 4.23 L Hemoglobin 12.6 L Hematocrit 36.8 L Mean Corpuscular Volume 87.0 Mean Corpuscular Hemoglobin 29.8 Mean Corpuscular Hemoglobin Concent 34.2 Red Cell Distribution Width 12.4 Platelet Count 207 Mean Platelet Volume 10.6 H Neutrophils % 55.5 Lymphocytes % 30.3 Monocytes % 10.0 Eosinophils % 3.2 Basophils % 0.6 Nucleated Red Blood Cells % 0.0 Neutrophils # 3.0 Lymphocytes # 1.6 Monocytes # 0.5 Eosinophils # 0.2 Basophils # 0.0 Nucleated Red Blood Cells # 0.0 Medications Medications Current Medications Morphine Sulfate (morphine) 3 mg Q3 PRN IV PAIN LEVEL 6-10 Last administered on 02/02/17 14:59; Admin Dose 3 MG; Start 02/01/17 at 23:30 Ondansetron HCl (Zofran Inj) 4 mg Q4 PRN IV NAUSEA AND/OR VOMITING; Start 02/01 at 23:30 Pantoprazole (Protonix Tab) 40 mg DAILY@06 PO Last administered on 02/05/17 06 :37; Admin Dose 40 MG; Start 02/02/17 at 06:00 Docusate Sodium (Colace) 100 mg Q12H PRN PO CONSTIPATION; Start 02/02/17 at 10: 30 Magnesium Hydroxide (Milk Of Mag) 30 ml DAILY PRN PO CONSTIPATION; Start at 10:30 Bisacodyl (Dulcolax Supp) 10 mg DAILY PRN [place] CONSTIPATION; Start 02/02/17 at 10 :30 Levofloxacin (Levaquin) 500 mg DAILY PO Last administered on 02/05/17 10:39; Admin Dose 500 MG; Start 02/05/17 at 10:00 Metronidazole (Flagyl) 500 mg Q8 PO Last administered on 02/05/17 10:39; Admin Dose 500 MG; Start 02/05/17 at 10:00 USMAN GAMBLE Feb 05, 2017 13:38
--- NOTE | 2017-02-05 13:39 | PDOCDIS ---
Discharge Instructions CONDITION Patient Condition: Stable HOME CARE INSTRUCTIONS: Diet Instructions: RegularSpecial Diet: Soft diet, to be advanced to regular consistency by 02/07 ACTIVITY: Activity Restrictions: No Restrictions FOLLOW UP/APPOINTMENTS Follow-up Plan Follow-up with primary care physician within 1 week Follow-up with general surgery, Dr. Arriaga within 1-2 weeks Follow-up/referral to gastroenterology as an outpatient in 6-8 weeks for possible colonoscopy USMAN GAMBLE Feb 05, 2017 13:39
[2017-02-05] MEDS ORDERED: LEVO500T72 PO (13:40)
[2017-02-05] MEDS ORDERED: METR500T PO (13:40)
--- NOTE | 2017-02-05 15:51 | DS ---
Date/Time of Note Date/Time of Note DATE: 02/05/17 TIME: 15:46 Discharge Summary Admission/Discharge Info Admit Date/Time Feb 01, 2017 at 23:17 Discharge Date/Time Feb 05, 2017 at 14:54 Discharge Diagnosis 1. Acute sigmoid diverticulitis with microperforation and adjacent small abscess, medically treated 2. Hypertension Patient Condition: Stable Consults General surgery, Dr. Arriaga Procedures None Hx of Present Illness Chief complaint: Abdominal pain History of presenting illness: 61-year-old male with history of hyperlipidemia and hypertension who presented to the emergency department with complaint of lower abdominal pain predominantly left lower quadrant for the past 1 week. Patient reports that the pain kept increasing in intensity over the past week. It seems to be worse after eating. He still has been able to take p.o., no nausea, vomiting, hematemesis, diarrhea. He reports occasional hematochezia over the past month, he thought he was secondary to hemorrhoids as he has had it in the past. He denies any large amount of bright red blood per rectum. Patient denies any previous history of diverticulitis as far as he knows. In the emergency department he was found to have mild leukocytosis with a white blood cell count of 11.3, CAT scan of the abdomen and pelvis does show sigmoid diverticulitis with a small fluid collection 2.2 x 1.8 cm adjacent to or within the sigmoid colon wall that appears suspicious for intramural versus intraperitoneal abscess formation. Patient is currently on IV antibiotics, WBC has trended down to normal, his pain is down to 4/10. We will have a surgical evaluation however most likely the patient will be treated medically. Patient denies any other comorbidities, no diabetes mellitus, no coronary artery disease. He is very active at baseline. Hospital Course Patient was evaluated by general surgery, Dr. Arriaga agreed that patient probably had microperforation with a very small abscess, therefore first-line treatment would be medical treatment and a surgical intervention only if patient fails medical treatment. Patient was maintained on antibiotics, his WBC came down to normal, his abdominal pain resolved, he was started on clear liquid diet he tolerated very well and advance to a soft diet within 24 hours with no complications and well tolerated. Patient is therefore discharged home today on oral antibiotic for 8 more days, he is discharged on Levaquin and Flagyl. He is to follow-up with his primary care physician and general surgery , Dr. Arriaga. Also he is to be referred to gastroenterology in the next 6-8 weeks for outpatient colonoscopy. Home Meds Active Scripts Metronidazole* (Flagyl*) 500 Mg Tablet, 500 MG PO Q8 for 8 Days, TAB Prov:Shanti GAMBLEVANDANATIM Coffey 02/05/17 Levofloxacin* (Levaquin*) 500 Mg Tablet, 500 MG PO DAILY for 8 Days, TAB Prov:TYEUSMAN Erlinda 02/05/17 Follow-up Plan Follow-up with primary care physician within 1 week Follow-up with general surgery, Dr. Arriaga within 1-2 weeks Follow-up/referral to gastroenterology as an outpatient in 6-8 weeks for possible colonoscopy Primary Care Provider Marlon Rasheed Time spent on discharge: > 30 minutes Pending Labs Laboratory Tests Test 02/05/17 05:01 02/05/17 05:02 Sodium Level 144mmol/L (135-144) Potassium Level 4.0mmol/L (3.5-5.1) Chloride Level 105mmol/L (97-110) Carbon Dioxide Level 32mmol/L (21-31) Anion Gap 11 (8-16) Blood Urea Nitrogen 10mg/dl (7-20) Creatinine 1.16mg/dl (0.61-1.24) Glucose Level 101mg/dl (70-220) Calcium Level 8.9mg/dl (8.4-10.2) Magnesium Level 2.0mg/dl (1.7-2.5) White Blood Count 5.310^3/ul (4.8-10.8) Red Blood Count 4.2310^6/ul (4.70-6.10) Hemoglobin 12.6g/dl (14.0-18.0) Hematocrit 36.8% (42.0-52.0) Mean Corpuscular Volume 87.0fl (82.0-101.0) Mean Corpuscular Hemoglobin 29.8pg (29.0-33.0) Mean Corpuscular Hemoglobin Concent 34.2g/dl (32.0-37.0) Red Cell Distribution Width 12.4% (11.5-14.5) Platelet Count 02562^3/UL (140-415) Mean Platelet Volume 10.6fl (7.4-10.4) Neutrophils % 55.5% (39.0-77.0) Lymphocytes % 30.3% (15.0-51.0) Monocytes % 10.0% (0.0-11.0) Eosinophils % 3.2% (0.0-7.0) Basophils % 0.6% (0.0-2.0) Nucleated Red Blood Cells % 0.0/100WBC (0.0-0.0) Neutrophils # 3.010^3/ul (1.6-7.5) Lymphocytes # 1.610^3/ul (0.8-2.9) Monocytes # 0.510^3/ul (0.3-0.9) Eosinophils # 0.210^3/ul (0.0-0.5) Basophils # 0.010^3/ul (0.0-0.1) Nucleated Red Blood Cells # 0.010^3/ul (0.0-0.0) USMAN GAMBLE Feb 05, 2017 15:51
== END 2017-02-05 14:54 | disposition home or self-care (01) | DRG 392 ==
LOC: E/R 16:25 → MS1 23:17
PROVIDERS: ADMIT Internal Medicine; ATTEND Internal Medicine
DX: K57.20 Diverticulitis of large intestine with perforation and abscess without bleeding (principal); I10 Essential (primary) hypertension; N28.89 Other specified disorders of kidney and ureter
CPT/HCPCS: 36415; 74177; 80048; 80053; 80061; 81003; 82150; 83690; 83735; 84100; 84153; 84154; 84484; 85025; 85610; 85730; 87040; 87086; 93005; 96374; 96375; 96376; J0744; J1170; J2270; J2405; J2543; J3480; J7030; Q9967

== ENCOUNTER 2018-04-28 11:01 | Emergency (ER) | payer OTHER ==
[~2018-04-28] VITALS: Wt 90.4 kg
[~2018-04-28 11:01] MED LIST: LEVO500T48 PO; METR500T PO
[2018-04-28 11:02] VITALS: BP 149/95; PULSE 76; RESP 20
[2018-04-28] MEDS ORDERED: BISM262O23 PO (12:21)
--- NOTE | 2018-04-28 14:20 | ERD ---
ER Documentation Chief Complaint Chief Complaint diarrhea HPI 63-year-old male presenting with diarrhea. Patient states that he has had generalized abdominal pain over the last few days which has now resolved. Patient is currently taking Bactrim and azithromycin from outside clinic for unknown reason. Patient denies any fevers. Denies any bloody stools. Denies any changes in urination. Has not currently experiencing abdominal pain. Has a history of diverticulosis. Denies other medical problems. NKDA. Surgical history denies. Social history denies ROS All systems reviewed and are negative except as per history of present illness. Medications Home Meds Active Scripts Bismuth Subsalicylate* (Pepto-Bismol*) 262 Mg/15 Ml Oral.susp, 30 ML PO Q3H, #100 ML Prov:PADMINI WHYTE PA-C 04/28/18 Metronidazole* (Flagyl*) 500 Mg Tablet, 500 MG PO Q8 for 8 Days, TAB Prov:USMAN GAMBLE 02/05/17 Levofloxacin* (Levaquin*) 500 Mg Tablet, 500 MG PO DAILY for 8 Days, TAB Prov:USMAN GAMBLE F 02/05/17 Allergies Allergies: Coded Allergies: No Known Allergy (Unverified , 04/28/18) PMhx/Soc History of Surgery: No Anesthesia Reaction: No Hx Neurological Disorder: No Hx Respiratory Disorders: No Hx Cardiac Disorders: Yes (on HTn med) Hx Psychiatric Problems: No Hx Miscellaneous Medical Probl: Yes (Lt eye redness) Hx Alcohol Use: No Hx Substance Use: No Hx Tobacco Use: No Smoking Status: Never smoker FmHx Family History: No diabetes, No coronary disease, No other Physical Exam Vitals Vital Signs Date Temp Pulse Resp B/P (MAP) Pulse Ox O2 O2 Flow FiO2 Time Delivery Rate 04/28/18 98.1 76 20 149/95 99 11:02 (113) Physical Exam GENERAL: The patient is well-appearing, well-nourished, in no acute distress CHEST: Clear to auscultation bilaterally. There are no rales, wheezes or rhonchi. HEART: Regular rate and rhythm. No murmurs, clicks, rubs or gallops. ABDOMEN:Soft, nontender and nondistended. Good bowel sounds. No rebound or guarding. No gross peritonitis. No gross organomegaly or masses. BACK: No midline or flank tenderness. Procedures/MDM MDM: 63-year-old male presenting with diarrhea. Patient abdominal exam is non- concerning. I have considered colitis versus diverticulitis and perforated abdomen but have low suspicion at this time. I recommend patient to refrain from taking antibiotics as is likely the cause of his diarrhea and I do not think it is required as patient is not experiencing abdominal pain or fevers. Patient is told symptoms change or worsen to immediately return to the ER. Patient is recommended to follow-up with primary care within 1-2 days for close evaluation. All questions answered at discharge Departure Diagnosis: Primary Impression: Diarrhea Condition: Stable Patient Instructions: Treating Diarrhea Referrals: [facility] YOU HAVE RECEIVED A MEDICAL SCREENING EXAM AND THE RESULTS INDICATE THAT YOU DO NOT HAVE A CONDITION THAT REQUIRES URGENT TREATMENT IN THE EMERGENCY DEPARTMENT. FURTHER EVALUATION AND TREATMENT OF YOUR CONDITION CAN WAIT UNTIL YOU ARE SEEN IN YOUR DOCTORS OFFICE WITHIN THE NEXT 1-2 DAYS. IT IS YOUR RESPONSIBILITY TO MAKE AN APPOINTMENT FOR FOLOW-UP CARE. IF YOU HAVE A PRIMARY DOCTOR --you should call your primary doctor and schedule an appointment IF YOU DO NOT HAVE A PRIMARY DOCTOR YOU CAN CALL OUR PHYSICIAN REFERRAL HOTLINE AT IF YOU CAN NOT AFFORD TO SEE A PHYSICIAN YOU CAN CHOSE FROM THE FOLLOWING [facility] [address] [facility] [address] [facility] [facility] [address] [facility] [address] [facility] [address] [facility]. [facility]. [address] Additional Instructions: FOLLOW UP WITH YOUR PRIMARY CARE PHYSICIAN TOMORROW.Return to this facility if you are not improving as expected. PADMINI WHYTE PA-C Apr 28, 2018 14:20
== END 2018-04-28 12:39 | disposition home or self-care (01) ==
LOC: FTE 11:01
DX: R19.7 Diarrhea, unspecified (principal); I10 Essential (primary) hypertension
CPT/HCPCS: 99282